=== PATIENT | female | born 1965 | race Two or more races ===

== ENCOUNTER 2016-10-17 12:40 | Emergency (ER) | payer MEDICAID, OTHER ==
[~2016-10-17] VITALS: Ht 157.5 cm; Wt 86.2 kg
[2016-10-17 12:49] VITALS: BP 133/86
[2016-10-17 13:43] LABS: Basophils # (auto) 0 uL; Basophils % (auto) 0.2 % (0.0-2.0); Eosinophils # (auto) 0.1 uL; Eosinophils % (auto) 0.7 % (0.0-7.0); Hematocrit 39.7 % (36.0-46.0); Hemoglobin 12.6 g/dL (12.2-16.2); Lymphocytes # (auto) 1.4 uL; Lymphocytes % (auto) 13.5 % (10.0-50.0); Mean Corpuscular Hemoglobin 29.2 pg (28.0-32.0); Mean Corpuscular Hgb Conc. 31.8 g/dL (32.0-36.0); Mean Corpuscular Volume 91.8 fL (80.0-100.0); Mean Platelet Volume 8.5 fL (7.4-10.4); Monocytes # (auto) 0.3 uL; Neutrophils # (auto) 8.6 uL; Neutrophils % (auto) 82.6 % (37.0-80.0); Platelet Count (auto) 380 10^3/uL (140-450); Red Cell Distribution Width 14.4 % (11.6-16.0); White Blood Cell 10.4 10^3/uL (4.4-10.8)
[2016-10-17 13:50] LABS: INR 1.01 (0.9-1.15); Prothrombin Time 10.4 sec (9.37-12.3)
[2016-10-17 14:02] LABS: Albumin 3.4 g/dL (3.4-5.0); Alkaline Phosphatase 56 U/L (45-117); Anion Gap 7 (5-15); Aspartate Aminotransferase 45 U/L (15-37); BUN/Creatinine Ratio 13.4; Bilirubin, Total 0.7 mg/dL (0.2-1.0); Blood Urea Nitrogen 11 mg/dL (7-18); Calcium 8.8 mg/dL (8.5-10.1); Carbon Dioxide 30 mmol/L (21-32); Chloride 104 mmol/L (98-107); GFR African American 96 mL/min; GFR Non-African American 79 mL/min; Glucose 120 mg/dL (74-106); Potassium 4.1 mmol/L (3.5-5.1); Sodium 141 mmol/L (136-145); Total Protein 7.2 g/dL (6.4-8.2)
== END 2016-10-17 14:57 | disposition left against medical advice (07) ==
LOC: EDBD 12:40 → EDUNIT# 12:40 → ER 12:59
DX: R55 Syncope and collapse (principal); J45.909 Unspecified asthma, uncomplicated; Z90.710 Acquired absence of both cervix and uterus; Z98.51 Tubal ligation status; Z88.6 Allergy status to analgesic agent; Z53.29 Procedure and treatment not carried out because of patient's decision for other reasons
CPT/HCPCS: 36415; 74176; 80053; 84484; 85025; 85610

== ENCOUNTER 2019-07-03 15:47 | Inpatient (IN) | payer MEDICAID, OTHER ==
[~2019-07-03] VITALS: Ht 157.5 cm; Wt 84.3 kg
[2019-07-03] MEDS ORDERED: ALBUTEROL SULF 2.5 MG/0.5ML(0.5%) NEB SOLN HHN ONE (16:15)
[2019-07-03] MEDS ORDERED: IPRATROPIUM BROM 0.5 MG/2.5ML INH SOL HHN ONE (16:15)
[2019-07-03] MEDS ORDERED: methylPREDNISolone SOD SUCC 125 MG/2 ML VL IV ONE (16:15)
[2019-07-03 16:50] LABS: Basophils # (auto) 0 uL; Eosinophils # (auto) 0 uL; Hematocrit 43.8 % (36.0-46.0); Hemoglobin 14.6 g/dL (12.2-16.2); Lymphocytes # (auto) 0.6 uL; Lymphocytes % (auto) 4.7 % (10.0-50.0); Mean Corpuscular Hemoglobin 31.1 pg (28.0-32.0); Mean Corpuscular Hgb Conc. 33.3 g/dL (32.0-36.0); Mean Corpuscular Volume 93.3 fL (80.0-100.0); Monocytes # (auto) 0.1 uL; Monocytes % (auto) 0.4 % (0.0-12.0); Neutrophils % (auto) 94.9 % (37.0-80.0); Platelet Count (auto) 312 10^3/uL (140-450); Red Cell Distribution Width 14.1 % (11.8-14.3); White Blood Cell 12.6 10^3/uL (4.4-10.8)
[2019-07-03 16:56] LABS: Albumin 3.8 g/dL (3.4-5.0); Calcium 8.4 mg/dL (8.5-10.1); Potassium 3.6 mmol/L (3.5-5.1)
[2019-07-03 17:01] LABS: BUN/Creatinine Ratio 9.3; Bilirubin, Total 0.9 mg/dL (0.2-1.0); Total Protein 7.9 g/dL (6.4-8.2)
[2019-07-03] MEDS ORDERED: MORPHINE SULF INJ 2 MG/ML SYRINGE 1ML ONE (17:28)
[2019-07-03] MEDS ORDERED: ONDANSETRON HCL 4 MG/2 ML VIAL ONE (17:29)
[2019-07-03] MEDS ORDERED: ONDANSETRON HCL 4 MG/2 ML VIAL IV ONE (17:30)
[2019-07-03] MEDS ORDERED: MORPHINE SULFATE 4 MG/ML SYR/VIAL IV ONE (17:30)
[2019-07-03 17:38] LABS: Urine WBC None Seen /hpf (0 - 5)
[2019-07-03 17:54] LABS: Urine Bacteria NONE SEEN /hpf (None Seen); Urine Blood Negative /uL (Negative); Urine Specific Gravity 1.023 (1.001-1.035)
[2019-07-03] MEDS ORDERED: MORPHINE SULF INJ 2 MG/ML SYRINGE 1ML IV PRN ×2 (18:15→19:00)
[2019-07-03] MEDS ORDERED: HYDROcodone-ACET 5/325MG TAB PO PRN (18:15)
[2019-07-03] MEDS ORDERED: ONDANSETRON HCL 4 MG/2 ML VIAL IV PRN (18:15)
[2019-07-03] MEDS ORDERED: ACETAMINOPHEN 500 MG TAB PO PRN (18:15)
[2019-07-03] MEDS: cefTRIAXone 1GM/50ML D5W 50 ML IV SCH (18:33)
[2019-07-03] MEDS ORDERED: guaiFENesin-CODEINE Liq 5 ML UD PO PRN (19:00)
[2019-07-03] MEDS ORDERED: NITROGLYCERIN 0.4 MG SL TAB SL PRN (19:00)
[2019-07-03] MEDS ORDERED: SODIUM CHLORIDE 0.9% 1,000 ML IV ONE (19:00)
[2019-07-03] MEDS ORDERED: ALBUTEROL SULF 2.5 MG/0.5ML(0.5%) NEB SOLN ONE (19:12)
[2019-07-03] MEDS ORDERED: IPRATROPIUM BROM 0.5 MG/2.5ML INH SOL ONE (19:12)
[2019-07-03] MEDS: BUDESONIDE (INHALATION) 0.5 MG/2 ML NEB NEB SCH (19:17)
[2019-07-03 20:13] VITALS: BP 119/62
[2019-07-03] MEDS ORDERED: ALBUAER3 IN (21:18)
[2019-07-03] MEDS ORDERED: TIOT1AER2 IN (21:18)
[2019-07-03] MEDS ORDERED: FLUT250M2 INH (21:18)
[2019-07-03] MEDS ORDERED: LEV100T PO (21:18)
[2019-07-03] MEDS: AZITHROMYCIN 500MG/ 250ML 250 ML IV SCH (21:27)
--- NOTE | 2019-07-03 21:30 | NUR ---
Telemetry admit from [facility] admitted to Telemetry unit after SBAR received. Patient oriented to SUKI SPEARS, león RN, unit, room, bed, and unit policies regarding patient care and visiting hours. Patient now on continuous telemetry monitoring, tele box # 49 and telemetry reading on arrival to unit is ST . Patient placed on bedside oxygen, weighed by bed scale and encouraged to call if they need something. All questions and concerns addressed, patient verbalized understanding. Note:PATIENT ALERT AND ORIENTED x4, AMBULATORY, SKIN INTACT, SOB ON EXERTION NOTED.
[2019-07-03 21:37] VITALS: BP 108/62
[2019-07-03 22:00] VITALS: BP 119/62
[2019-07-03] MEDS ORDERED: INFLUENZA QUAD 2019-2020 0.5ml SYRG IM ONE (22:00)
--- NOTE | 2019-07-03 22:53 | NUR ---
IV insertion IV access obtained, via clean sterile technique by inserting gauge #20 catheter at after RIGHT FOREARM. IV secured properly. No trauma to site. Patient tolerated well. NOTE: IV TO RIGHT HAND D/C'D DUE TO C/O PAIN.
--- NOTE | 2019-07-03 22:56 | NUR ---
RE: FLU VACCINE PATIENT WANTS TO TAKE FLU VACCINE PRIOR TO GOING HOME.
[2019-07-04] MEDS: ALBUTEROL SULF 2.5 MG/0.5ML(0.5%) NEB SOLN NEB SCH ×4 (00:08→19:12)
[2019-07-04] MEDS: IPRATROPIUM BROM 0.5 MG/2.5ML INH SOL NEB SCH ×2 (00:08→07:04)
--- NOTE | 2019-07-04 00:18 | NUR ---
PATIENT C/O SOB AT REST, WHEEZING, CALLED RT FOR BREATHING TREATMENT. HOSPITALIST PAGED.
[2019-07-04] MEDS: MAGNESIUM SULFATE 1GM/100ML 100 ML IV SCH ×2 (00:33→04:11)
[2019-07-04] MEDS ORDERED: ALBUTEROL SULF 2.5 MG/0.5ML(0.5%) NEB SOLN NEB PRN ×2 (01:15→12:15)
[2019-07-04 04:58] VITALS: BP 107/62
--- NOTE | 2019-07-04 06:49 | NUR ---
PATIENT HAD NO FURTHER EPISODES OF RESPIRATORY DISTRESS, CONTINUES ON 02 VIA N/C AT 2L, 02 SAT 96%. HAS CHRONIC LEG CRAMPS, MAGNESIUM 1GM X2 BAGS GIVEN ORDERED. BREATHING TREATMENTS PER RT.
[2019-07-04 07:04] LABS: Basophils # (auto) 0 uL; Eosinophils # (auto) 0 uL; Hematocrit 39.2 % (36.0-46.0); Hemoglobin 12.9 g/dL (12.2-16.2); Lymphocytes # (auto) 1.5 uL; Lymphocytes % (auto) 6.8 % (10.0-50.0); Mean Corpuscular Hemoglobin 30.9 pg (28.0-32.0); Mean Corpuscular Hgb Conc. 32.9 g/dL (32.0-36.0); Mean Corpuscular Volume 93.9 fL (80.0-100.0); Monocytes # (auto) 0.8 uL; Monocytes % (auto) 3.8 % (0.0-12.0); Neutrophils # (auto) 19.6 uL; Neutrophils % (auto) 89.4 % (37.0-80.0); Platelet Count (auto) 278 10^3/uL (140-450); Red Blood Cells 4.18 10^6/uL (4.0-5.20); Red Cell Distribution Width 14.7 % (11.8-14.3)
[2019-07-04] MEDS: BUDESONIDE (INHALATION) 0.5 MG/2 ML NEB NEB SCH ×2 (07:04→19:13)
[2019-07-04 07:22] LABS: BUN/Creatinine Ratio 12.9; Calcium 8.4 mg/dL (8.5-10.1); Potassium 4.5 mmol/L (3.5-5.1)
[2019-07-04 09:00] VITALS: BP 118/60
[2019-07-04] MEDS: cefTRIAXone 1GM/50ML D5W 50 ML IV SCH (09:21)
[2019-07-04] MEDS: FAMOTIDINE 20 MG TAB PO SCH (09:21)
[2019-07-04] MEDS: AZITHROMYCIN 500MG/ 250ML 250 ML IV SCH (10:28)
[2019-07-04] MEDS: LEVOFLOXACIN 500MG 100 ML IV SCH (12:02)
[2019-07-04] MEDS: methylPREDNISolone SOD SUCC 40 MG/ML VL IV SCH ×2 (12:03→21:34)
[2019-07-04] MEDS ORDERED: IPRATROPIUM BROM 0.5 MG/2.5ML INH SOL NEB PRN (12:15)
[2019-07-04 13:00] VITALS: BP 128/71
[2019-07-04 16:53] VITALS: BP 125/76
--- NOTE | 2019-07-04 19:10 | NUR ---
OPENING NOTE- NOC SHIFT PATIENT IS ALERT AND ORIENTED X4, ANSWERS IN COMPLETE SENTENCES AND MAKES EYE CONTACT. NO S/SX OF DISTRESS, SOB OR PAIN. PATIENT PRESENTS WITH COUGH, WILL ADMINISTER MEDICATION PER MD ORDERS ON eMAR. PATIENT IN BED, BED IS LOCKED AT LOWEST POSITION, BED RAILS UP X2 AND HEAD OF BED IS UP >30 DEGREES FOR SAFETY PRECAUTIONS. WILL CONTINUE TO MONITOR Q1H AND PRN.
[2019-07-04 23:32] VITALS: BP 138/75
[2019-07-05 05:38] LABS: Basophils # (auto) 0 uL; Basophils % (auto) 0.1 % (0.0-2.0); Eosinophils # (auto) 0 uL; Hematocrit 40.7 % (36.0-46.0); Hemoglobin 13.8 g/dL (12.2-16.2); Lymphocytes # (auto) 1.5 uL; Mean Corpuscular Hemoglobin 31.5 pg (28.0-32.0); Mean Corpuscular Hgb Conc. 33.8 g/dL (32.0-36.0); Monocytes # (auto) 0.6 uL; Neutrophils # (auto) 19.1 uL; Neutrophils % (auto) 89.9 % (37.0-80.0); Platelet Count (auto) 273 10^3/uL (140-450); Red Blood Cells 4.37 10^6/uL (4.0-5.20); Red Cell Distribution Width 14.5 % (11.8-14.3); White Blood Cell 21.2 10^3/uL (4.4-10.8)
[2019-07-05 05:56] LABS: Calcium 8.5 mg/dL (8.5-10.1); Potassium 4.7 mmol/L (3.5-5.1)
[2019-07-05 06:00] LABS: BUN/Creatinine Ratio 22.9
[2019-07-05 06:17] VITALS: BP 115/68
[2019-07-05] MEDS ORDERED: LEVOTHYROXINE SODIUM 50 MCG TAB PO SCH (07:00)
[2019-07-05] MEDS: BUDESONIDE (INHALATION) 0.5 MG/2 ML NEB NEB SCH ×2 (07:01→18:45)
[2019-07-05] MEDS: ALBUTEROL SULF 2.5 MG/0.5ML(0.5%) NEB SOLN NEB SCH ×3 (07:01→18:45)
--- NOTE | 2019-07-05 08:00 | NUR ---
Opening Shift Note Assumed care of patient, awake and alert. No S/S of distress/SOB or pain. Instructed on POC and to call for assist PRN, will continue to monitor for changes Q1hr and PRN.
[2019-07-05 09:04] VITALS: BP 132/74
[2019-07-05] MEDS: FAMOTIDINE 20 MG TAB PO SCH (09:25)
[2019-07-05] MEDS: methylPREDNISolone SOD SUCC 40 MG/ML VL IV SCH (09:25)
[2019-07-05] MEDS: LEVOFLOXACIN 500MG 100 ML IV SCH (09:26)
[2019-07-05 13:26] VITALS: BP 142/83
--- NOTE | 2019-07-05 14:55 | NUR ---
Spoke to Sudheer regarding d/c planing to day with HH, stated that [facility] is HH for patient. Patient notified.
--- NOTE | 2019-07-05 15:14 | NUR ---
D/C Planning Per consult for home health safety evaluation. Contact [facility] Ph:( [phone]) Fax:) faxed medical records. Per Megan from [facility] Pt has been accepted and service to start within 48hrs upon d/c day. Contact [facility] Ph:) Fax:) faxed medical records requesting authorization for home health. Informed RN Steff. Addendum: 07/05/19 at 1517 by RANJAN HOPE Amended: Links added.
--- NOTE | 2019-07-05 16:35 | NUR ---
D/C Planning Per Brooke from [facility] Ph:( [phone]) authorization for home health is [id number].
[2019-07-05 17:24] VITALS: BP 126/82
[2019-07-05] MEDS ORDERED: LEVO500T21 PO (18:21)
[2019-07-05] MEDS ORDERED: IPR002IS NEB (18:21)
[2019-07-05] MEDS ORDERED: ALBU1.257 NEB (18:21)
[2019-07-05] MEDS ORDERED: PRE5T PO (18:21)
[2019-07-05 18:28] VITALS: BP 126/82
[2019-07-05] MEDS ORDERED: INFLUENZA QUAD 2019-2020 0.5ml SYRG IM ONE (18:45)
--- NOTE | 2019-07-05 18:45 | NUR ---
Spoke to Marcelle regarding Taxi Voucher, she will bring it soon.
--- NOTE | 2019-07-05 19:05 | NUR ---
Opening Shift Note Received report from day shift nurseSteff. Assumed care of patient. Patient is awake, alert, and orientated x 4. No S/S of distress/SOB or pain. Patient has no IV and telemonitor has been removed. Patient is in her own clothes. Bed is in lowest position with side rails up x 2. Bed brakes are locked and call light is with in reach. HOB is 30 degrees. Currently awaiting taxi voucher. Will continue to monitor for changes Q1hr and PRN.
--- NOTE | 2019-07-05 19:18 | NUR ---
Report given to Fredi , he will recall [facility] for a taxi voucher.
--- NOTE | 2019-07-05 20:15 | NUR ---
taxi Taxi voucher at hand, called [employer] 45 minutes. Advised patient.
--- NOTE | 2019-07-05 21:25 | NUR ---
Discharge instructions given as ordered. Encourage to follow up with PMD as instructed. All questions and concerns addressed. Patient verbalized understanding. Vaccine given by day shift nurse. Patient taken to taxi via wheelchair with all personal belongings, accompanied by staff. No distress noted at time of departure.
== END 2019-07-05 21:25 | disposition home health service (06) | DRG 140 ==
LOC: ER 15:47 → TELE 15:48 → TELE-WESTW 20:16
PROVIDERS: ADMIT Nurse Practitioner Acute Care; ATTEND Internal Medicine
DX: J44.1 Chronic obstructive pulmonary disease with (acute) exacerbation (principal); J96.00 Acute respiratory failure, unspecified whether with hypoxia or hypercapnia; N17.0 Acute kidney failure with tubular necrosis; N18.3 Chronic kidney disease, stage 3 (moderate); E03.9 Hypothyroidism, unspecified; D72.829 Elevated white blood cell count, unspecified; T38.0X5A Adverse effect of glucocorticoids and synthetic analogues, initial encounter; E66.9 Obesity, unspecified; Z90.710 Acquired absence of both cervix and uterus; Z90.49 Acquired absence of other specified parts of digestive tract; Z98.51 Tubal ligation status; Z98.49 Cataract extraction status, unspecified eye; Z83.3 Family history of diabetes mellitus; Z80.9 Family history of malignant neoplasm, unspecified; Z82.49 Family history of ischemic heart disease and other diseases of the circulatory system; Z79.51 Long term (current) use of inhaled steroids; Y92.89 Other specified places as the place of occurrence of the external cause; Z68.34 Body mass index [BMI] 34.0-34.9, adult; Z88.6 Allergy status to analgesic agent; Z23 Encounter for immunization
CPT/HCPCS: 36415; 71045; 80048; 80053; 81001; 83036; 83735; 84443; 85025; 87040; 87070; 87205; 87804; 93005; 94640; 94644; G0378; J0696; J1956; J2405

== ENCOUNTER 2019-07-06 18:39 | Emergency (ER) | payer MEDICAID ==
[~2019-07-06] VITALS: Ht 157.5 cm; Wt 81.6 kg
[~2019-07-06 18:39] MED LIST: ALBU1.257 NEB; ALBUAER3 IN; FLUT250M2 INH; IPR002IS NEB; LEV100T PO; LEVO500T21 PO; PRE5T PO; TIOT1AER2 IN
[2019-07-06] MEDS ORDERED: ALBUTEROL SULF 2.5 MG/0.5ML(0.5%) NEB SOLN NEB ONE (19:15)
[2019-07-06] MEDS ORDERED: IPRATROPIUM BROM 0.5 MG/2.5ML INH SOL NEB ONE ×3 (19:15→21:00)
[2019-07-06] MEDS ORDERED: methylPREDNISolone SOD SUCC 125 MG/2 ML VL IV ONE (19:15)
[2019-07-06] MEDS ORDERED: IPRATROPIUM BROM 0.5 MG/2.5ML INH SOL ONE (19:28)
[2019-07-06] MEDS ORDERED: methylPREDNISolone SOD SUCC 125 MG/2 ML VL IM ONE (19:30)
[2019-07-06 19:34] LABS: Basophils # (auto) 0 uL; Eosinophils # (auto) 0 uL; Eosinophils % (auto) 0.3 % (0.0-7.0); Hemoglobin 14.4 g/dL (12.2-16.2); Lymphocytes # (auto) 1.8 uL; Lymphocytes % (auto) 12.2 % (10.0-50.0); Mean Corpuscular Hemoglobin 30.9 pg (28.0-32.0); Mean Corpuscular Hgb Conc. 33.4 g/dL (32.0-36.0); Mean Corpuscular Volume 92.5 fL (80.0-100.0); Monocytes # (auto) 0.3 uL; Monocytes % (auto) 2.3 % (0.0-12.0); Neutrophils # (auto) 12.5 uL; Neutrophils % (auto) 85.2 % (37.0-80.0); Nucleated Red Blood Cells % 0.1 %; Platelet Count (auto) 292 10^3/uL (140-450); Red Blood Cells 4.66 10^6/uL (4.0-5.20); Red Cell Distribution Width 14.1 % (11.8-14.3); White Blood Cell 14.7 10^3/uL (4.4-10.8)
[2019-07-06 19:40] LABS: BUN/Creatinine Ratio 21.3; Calcium 8.7 mg/dL (8.5-10.1); Potassium 4.1 mmol/L (3.5-5.1)
[2019-07-06] MEDS ORDERED: ALBUTEROL SULF 2.5 MG/0.5ML(0.5%) NEB SOLN NEB STA (20:58)
[2019-07-06 21:52] LABS: Alanine Aminotransferase 46 U/L (13-56); Albumin 3.6 g/dL (3.4-5.0); Bilirubin, Direct 0.2 mg/dL (0-0.2)
[2019-07-06 21:57] LABS: Alkaline Phosphatase 105 U/L (45-117); Aspartate Aminotransferase 28 U/L (15-37); Bilirubin, Total 0.7 mg/dL (0.2-1.0); Total Protein 7.1 g/dL (6.4-8.2)
[2019-07-07 01:13] VITALS: BP 127/78
== END 2019-07-07 02:15 | disposition home or self-care (01) ==
LOC: ER 18:39
DX: J44.1 Chronic obstructive pulmonary disease with (acute) exacerbation (principal); Z98.51 Tubal ligation status; Z90.49 Acquired absence of other specified parts of digestive tract; Z90.710 Acquired absence of both cervix and uterus
CPT/HCPCS: 36415; 71046; 80048; 80076; 83880; 84484; 85025; 93005; 94640; 96372; 99284; J2930; J7611; J7644

== ENCOUNTER → 2022-08-06 | Outpatient (CLI) | payer MEDICAID ==
[~2022-08-06] MED LIST changes: -LEVO500T21 PO; +LEVO500T31 PO
== END | disposition home or self-care (01) ==
LOC: Rad HDHVI 10:48
PROVIDERS: ATTEND Internal Medicine Cardiovascular Disease
DX: I08.1 Rheumatic disorders of both mitral and tricuspid valves (principal); R00.2 Palpitations; R06.02 Shortness of breath
CPT/HCPCS: 93306

== ENCOUNTER → 2022-08-13 | Outpatient (CLI) | payer MEDICAID ==
[~2022-08-13] VITALS: Ht 157.5 cm; Wt 78.9 kg
[~2022-08-13] MED LIST changes: +ADENOSINE 66 MG in GIVE UN-DILUTED 0 ML IV ONE; +ADENOSINE 90 MG/30 ML INJ IV ONE; +AMINOPHYLLINE 250 MG/10 ML VL IV ONE
== END | disposition home or self-care (01) ==
LOC: Rad HDHVI 08:35
PROVIDERS: ATTEND Internal Medicine Cardiovascular Disease
DX: I20.0 Unstable angina (principal); R07.9 Chest pain, unspecified; E11.9 Type 2 diabetes mellitus without complications; I10 Essential (primary) hypertension; E78.5 Hyperlipidemia, unspecified; Z82.49 Family history of ischemic heart disease and other diseases of the circulatory system
CPT/HCPCS: 78452; 93005; 94640; 96374; 96375; A9500; J0153; J0280

== ENCOUNTER 2023-07-12 15:17 | Emergency (ER) | payer MEDICAID ==
[~2023-07-12] VITALS: Ht 157.5 cm; Wt 69.9 kg
[~2023-07-12 15:17] MED LIST changes: -ADENOSINE 66 MG in GIVE UN-DILUTED 0 ML IV ONE; -ADENOSINE 90 MG/30 ML INJ IV ONE; -ALBU1.257 NEB; +ALBU1.258 NEB; -AMINOPHYLLINE 250 MG/10 ML VL IV ONE
[2023-07-12] MEDS ORDERED: IPRATROPIUM BROM 0.5 MG/2.5ML INH SOL NEB ONE (19:15)
[2023-07-12] MEDS ORDERED: ALBUTEROL SULF 2.5 MG/0.5ML(0.5%) NEB SOLN NEB ONE (19:15)
[2023-07-12 19:23] LABS: Basophils # (auto) 0.1 10 ^3/uL (0-0.2); Basophils % (auto) 0.6 % (0.0-2.0); Eosinophils # (auto) 0.3 10 ^3/uL (0-0.8); Eosinophils % (auto) 3.1 % (0.0-7.0); Hematocrit 41.4 % (36.0-46.0); Hemoglobin 13.9 g/dL (12.2-16.2); Lymphocytes # (auto) 2.7 10 ^3/uL (0.4-5.4); Lymphocytes % (auto) 30.2 % (10.0-50.0); Mean Corpuscular Hemoglobin 30.7 pg (28.0-32.0); Mean Corpuscular Hgb Conc. 33.7 g/dL (32.0-36.0); Mean Corpuscular Volume 91.3 fL (80.0-100.0); Monocytes # (auto) 0.4 10 ^3/uL (0-1.3); Monocytes % (auto) 4.9 % (0.0-12.0); Neutrophils # (auto) 5.6 10 ^3/uL (1.6-8.6); Neutrophils % (auto) 61.2 % (37.0-80.0); Nucleated Red Blood Cells % 0.2 %; Red Blood Cells 4.53 10^6/uL (4.0-5.20); Red Cell Distribution Width 14.8 % (11.8-14.3); White Blood Cell 9.1 10^3/uL (4.4-10.8)
[2023-07-12 19:41] LABS: Alanine Aminotransferase 22 U/L (7-40); Albumin 4.6 g/dL (3.2-4.8); Alkaline Phosphatase 78 U/L (46-116); Anion Gap 7 (5-15); Aspartate Aminotransferase 16 U/L (13-40); Blood Urea Nitrogen 13 mg/dL (9-23); Carbon Dioxide 30 mmol/L (20-30); Chloride 105 mmol/L (98-107); Glucose 187 mg/dL (74-106); Potassium 4.2 mmol/L (3.5-5.1); Sodium 142 mmol/L (136-145)
[2023-07-12 19:42] LABS: Bilirubin, Total 1.4 mg/dL (0.2-1.0); Total Protein 7.2 g/dL (5.7-8.2)
[2023-07-12 19:45] LABS: Lactic Acid w/Reflex 3.2 mmol/L (0.4-2.0)
[2023-07-12] MEDS ORDERED: SODIUM CHLORIDE 0.9% 1,000 ML IV ONE (21:00)
[2023-07-12 23:52] LABS: Urine Bacteria FEW /hpf (None Seen); Urine Blood Negative /uL (Negative); Urine Clarity HAZY (Clear); Urine Color Yellow (Yellow); Urine Mucus FEW (None Seen); Urine Protein, UAD TRACE (Negative); Urine Specific Gravity 1.034 (1.001-1.035); Urine WBC 2 /hpf (0 - 5); Urine pH 5.5 (5.0-8.0)
[2023-07-13] MEDS ORDERED: FLUT1AER3 IN (00:05)
[2023-07-13] MEDS ORDERED: NITR100C6 PO (00:05)
[2023-07-13 00:25] VITALS: BP 123/82; PULSE 95; RESP 16; TEMP 98.7; O2SAT 97
== END 2023-07-13 00:30 | disposition home or self-care (01) ==
LOC: ER 15:17
DX: J44.1 Chronic obstructive pulmonary disease with (acute) exacerbation (principal); N39.0 Urinary tract infection, site not specified; R07.89 Other chest pain; I10 Essential (primary) hypertension; E11.9 Type 2 diabetes mellitus without complications; Z79.2 Long term (current) use of antibiotics; Z79.899 Other long term (current) drug therapy; Z88.8 Allergy status to other drugs, medicaments and biological substances
CPT/HCPCS: 36415; 71045; 80053; 81001; 83605; 83880; 85025; 85379; 93005; 94640; 99285; J7644

== ENCOUNTER → 2024-01-12 | Outpatient (CLI) | payer OTHER ==
[~2024-01-12] VITALS: Ht 157.5 cm; Wt 69.4 kg
[~2024-01-12] MED LIST changes: +DOBUTamine 1000MCG/ML 100 ML IV ONE; +DOBUTamine 1000MCG/ML 250 ML IV ONE; +FLUT1AER3 IN; +NITR100C6 PO
== END | disposition home or self-care (01) ==
LOC: Rad HDHVI 13:14
PROVIDERS: ATTEND Internal Medicine Cardiovascular Disease
DX: I47.9 Paroxysmal tachycardia, unspecified (principal); I10 Essential (primary) hypertension; R55 Syncope and collapse; R42 Dizziness and giddiness; E11.21 Type 2 diabetes mellitus with diabetic nephropathy; J44.9 Chronic obstructive pulmonary disease, unspecified; E78.5 Hyperlipidemia, unspecified; Z82.49 Family history of ischemic heart disease and other diseases of the circulatory system
CPT/HCPCS: 78452; 93005; 96374; 96375; A9500; J1250

== ENCOUNTER 2025-05-06 12:20 | Emergency (ER) | payer OTHER, MEDICAID ==
[~2025-05-06] VITALS: Ht 157.5 cm; Wt 70.0 kg
[~2025-05-06 12:20] MED LIST changes: -DOBUTamine 1000MCG/ML 100 ML IV ONE; -DOBUTamine 1000MCG/ML 250 ML IV ONE; -LEV100T PO; +LEVO-849 PO
[2025-05-06 12:21] VITALS: TEMP 98.1
[2025-05-06 12:42] VITALS: BP 113/66; PULSE 85; RESP 18; O2SAT 96
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
[2025-05-06] MEDS: HYDROcodone-ACET 5/325MG TAB PO ONE (13:08)
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
[2025-05-06] MEDS ORDERED: HYDR-4902 PO (14:30)
== END 2025-05-06 14:47 | disposition home or self-care (01) ==
LOC: ER 12:20
DX: S40.011A Contusion of right shoulder, initial encounter (principal); M62.838 Other muscle spasm; E11.9 Type 2 diabetes mellitus without complications; I10 Essential (primary) hypertension; J44.9 Chronic obstructive pulmonary disease, unspecified; Z79.899 Other long term (current) drug therapy; Z88.6 Allergy status to analgesic agent; Z79.891 Long term (current) use of opiate analgesic; Z79.51 Long term (current) use of inhaled steroids; Z79.890 Hormone replacement therapy; V89.2XXA Person injured in unspecified motor-vehicle accident, traffic, initial encounter; Y93.89 Activity, other specified; Y92.488 Other paved roadways as the place of occurrence of the external cause; Y99.8 Other external cause status
CPT/HCPCS: 72125; 73030